=== PATIENT | female | born 2000 | race Caucasian/White ===

== ENCOUNTER 2025-07-06 12:02 | Emergency (ER) | payer OTHER, SELFPAY ==
--- OUTSIDE RECORDS SUMMARY | 2018-05-10 06:00 | XMS_ITS | Continuity of Care Document ---
Author Organization [facility] Address [address] [place] [address] Phone Care Team Providers Care Access Director Name Role Phone MD MARIA L, MONIK RIDDLE Unavailable Unavailab le Advance Directives Directive Yes / No Effective Date File Name No Information Encounters Encounter Description Practice Location Reason(s) For Visit Diagnoses Date Provider Providers Copied on Encounter [facility], [facility], [place], [address], tel:[phone] [facility] OFFICE No Information 8 MD MONIK LISA. [address] [place] [address], [place], [id number] , [place]. tel:[phone] Referring Provider: GABBY Suarez [address] [place] [address] [address], [place], [address]. tel:[phone] Family History Family Member Type Diagnosis Age At Onset Problem (finding) No family hist ory of Cardiomyopathy - hypertrophic Problem (finding) No family hist ory of Premature CAD Problem (finding) No family hist ory of Diabetes Mellitus Paternal Grandfather Problem (finding) Hypertension Paternal Grandmother Problem (finding) Hypertension Problem (finding) No family history of Ar rhythmia Problem (finding) No family hist ory of Cardiomyopathy - dilated Problem (finding) No family hist ory of Congenital Heart Disease Problem (finding) No family history of Hopson dden Payers Payer name Insurance type Covered libertarian ID Authoriza tion(s) [facility] POS [id number] Social History Type Description Quantity Date Captured Comments Alcohol Use Details Unknown Caffeine Use Details Unknown Tobacco Use Status No Information Smoking Status No Information Sex Female Vital Signs Date / Time: Height Weight BMI Pulse Rate Blood Pressure Temperature Respiratory Rate Body Surface Area Head Circumference BMI percentile Pulse Ox Inhaled Ox 10:31 AM 62.99 in 50.349 kg (111.00 lbs) 19.7 0 kg/m eter (2) 75 /min 16 /min 1.50 meter(2) 29 Chief Complaint And Reason For Visit No Information History Of Present Illness Encounter Date Complaint History Of Prese nt Illness No Information Instructions Date Instruction Additional Infor mation No Information Assessments Type Assessment Date No Information
--- OUTSIDE RECORDS SUMMARY | 2020-07-26 20:00 | XMS_ITS | Continuity of Care Document ---
Author Organization [facility] Address [address] [place] [address] Care Team Providers Care Surveyor Helper Rod Name Role Phone No Information Unavailable Unavailable Advance Directives Directive Yes / No Effective Date File Name No Information Encounters Encounter Description Practice Location Reason(s) For Visit Diagnoses Date Provider Providers Copied on Encounter [facility], [address] [place], [place], [phone], No Information No Information Family History Family Member Type Diagnosis Age At Onset Problem (finding) No family hist ory of Premature CAD Problem (finding) No family hist ory of Cardiomyopathy - hypertrophic Problem (finding) No family history of Hopson dden Problem (finding) No family history of Ar rhythmia Problem (finding) No family hist ory of Congenital Heart Disease Problem (finding) No family hist ory of Diabetes Mellitus Problem (finding) No family hist ory of Cardiomyopathy - dilated Paternal Grandfather Problem (finding) Hypertension Paternal Grandmother Problem (finding) Hypertension Payers Payer name Insurance type Covered constitution party ID Authoriza tion(s) No Information Social History Type Description Quantity Date Captured [...]
--- OUTSIDE RECORDS SUMMARY | 2025-05-08 17:15 | XMS_ITS | Encounter Summary ---
Author Organization [facility] [place] [address] Care Team Providers Care Construction Operations Manager Name Role Phone Unavailable Primary Care Provider Unavailabl e Reason for Visit * Reason Comments Insect Bite Tick bite Encounter Details Date Type Department Care Team (Late st Contact Info) Description 05/08/2025 5:15 PM EDT Telemedicine [facility] Virtual Health Video Visits [address] [place] [address] Janell Pedraza APRN [address] [place] [address] Tick bite of lower back, initial encounter (Primary Dx) Social History Tobacco Use Types Packs/Day Years Used Date Smoking Tobacco: Never Smokeless Tobacco: Never Tobacco Cessation:Counseling Given: Not Answered Comments Unknown Sex and Gender Information Value Date Recorded Sex Assigned at Not on file Legal Sex Female 4:45 PM EDT Gender Identity Not on file Sexual Orientation Not on file documented as of this encounter Last Filed Vital Signs Vital Sign Reading Time Taken Comments Blood Pressure - - Pulse - - Temperature - - Respiratory Rate - - Oxygen Saturation - - Inhaled Oxygen Concentration - - Weight 54.4 kg (120 lb) 05/08/2025 5:32 PM EDT Height 160 cm (5' 3 ) 05/08/2025 5:32 PM EDT Body Mass Index 21.26 05/08/2025 5:32 PM EDT documented in this encounter Patient Instructions * Attachments The following attachments cannot be sent through Care Everywhere. * Insect bites and stings (Kyrgyz) * Lyme disease (Kyrgyz) documented in this encounter Ordered Prescriptions Prescription Sig Dispense Quantity Refills Last Filled Start Date End Date doxycycline hyclate (VIBRA-TABS) 100 mg Oral TabletIndications: Tick bite of lower back, initial encounter Take 2 Tablets by mouth once for 1 dose. 2 Tablet 05/09/2025 5 doxycycline hyclate (VIBRA-TABS) 100 mg Oral TabletIndications: Tick bite of lower back, initial encounter Take 2 Tablets by mouth once for 1 dose. 2 Tablet 05/08/2025 5 documented in this encounter Progress Notes * Janell Pedraza, DEPARTMENT DIRECTOR - 05/08/2025 5:15 PM EDT Images from the original note were not included. Eva Zimmerman is a 24 y.o. female Chief Complaint: Chief Complaint Patient presents with Insect Bite Tick bite This virtual health visit is being conducted using a Video Visit (live, interactive video and audio), in accordance with [facility] telehealth laws and policies, and in a private space with a secure platform. Patient has reviewed the terms and conditions of service as part of the registration for today's visit.. HISTORY OF PRESENT ILLNESS - SUBJECTIVE Patient presents for video visit with c/o a tick bite. Patient states that she removed the tick yesterday. Patient was outside on Monday. She states that she did shower on Monday night and did not see/feel the take at that time. She thinks that it was possibly in her cloths yesterday. She states that the tick released easily with a small amount of pressure. The tick was flat and not engorged. She denies any fever or chills. She denies any joint pain or fatigue. She denies any rash. Patient is stable and in no apparent distress during video visit. LMP: (female only) 1 month ago, denies concerns for . MEDICAL HISTORY There is no immunization history on file for this patient. Health Maintenance Due Topic Date Due Annual Wellness Exam Never done HPV (1 - 3-dose series) Never done DTaP/TDaP/Td (1 - Tdap) Never done Hepatitis B Vaccine (1 of 3 - 19+ 3-dose series) Never done COVID-19 Vaccine ( season) Never done Current Outpatient Medications on File Prior to Visit Medication Sig Dispense Refill spironolactone (ALDACTONE) 25 mg Oral Tablet Take by mouth 2 times daily. No current facility-administered medications on file prior to visit. REVIEW OF SYSTEMS Review of Systems Constitutional: Negative for chills, fever, malaise/fatigue and weight loss. Respiratory: Negative for cough and shortness of breath. Cardiovascular: Negative for chest pain. Gastrointestinal: Negative for abdominal pain, constipation, diarrhea, nausea and vomiting. Skin: Negative for itching and rash. Tick bite Neurological: Negative for dizziness, weakness and headaches. PHYSICAL EXAM - OBJECTIVE Physical Exam Constitutional: General: She is not in acute distress. Appearance: She is not ill-appearing. Comments: Pt is stable and in no distress during video visit Pulmonary: Effort: Pulmonary effort is normal. No respiratory distress. Skin: Coloration: Skin is not cyanotic or pale. Comments: Small bite located to the right hip area. There is no rash noticeable. Over video visit it appears to be approximately 3 mm. The patient states that it is smaller than a pencil eraser. There is no surrounding erythema or rash. Exam is limited due to video visit. Neurological: Mental Status: She is alert and oriented to person, place, and time. Psychiatric: Attention and Perception: Attention normal. Mood and Affect: Mood and affect normal. Speech: Speech normal. Behavior: Behavior normal. Thought Content: Thought content normal. LABS ASSESSMENT AND PLAN Diagnoses and all orders for this visit: Tick bite of lower back, initial encounter - doxycycline hyclate (VIBRA-TABS) 100 mg Oral Tablet; Take 2 Tablets by mouth once for 1 dose. Dispense: 2 Tablet; Refill: 0 Discussion: Patient instructed to clean the area twice a day with warm soap and water. She is to watch the area closely for rash or erythema. She is to report this immediately by going to the urgent care or calling back for a VV OD. She is to also follow-up for any body aches, fatigue or fever overthe next few days to months. Patient only visiting the area for the summer and does not currently yeboah ve a PCP. I will go ahead and empirically treat her with the PEP protocol of doxycycline 200 mg once. The patient has requested evaluation by telemedicine. Patient verbally expressed understanding of the risks/limitations associated with the use of telemedicine, including equipment failure, poor audio/image resolution, information writer issues, the fact that patient will not be physically examined and may need to come to clinic to complete the assessment. Patient has reviewed the terms and conditions of service as part of the registration for today's visit. A video visit does not replace a [id number] exam and further services may be necessary. We are conducting her video visit in a private space and this video visit is being conducted in accordance with state telehealth/video visit regulations. Discussed self management and treatment plan. Instructed to notify PCP/seek emergency care if new symptoms occur or if current symptoms worsen or don't improve and/or with any questions or concerns. Pt voiced understanding. Instructed to notify PCP/seek emergency care if new symptoms occur or if current symptoms worsen ordon't improve and/or with any questions or concerns. This chart was completed using Bokee voice recognition technology and may contain unintended errors. Explained to patient the limitations of a video visit and that certain illnesses can be missed without a physical exam and that by treating him he/she agrees to follow up in person if his/her symptoms do not resolve in a reasonable time or to be seen immediately if he/she feels their symptoms are getting worse. Educated patient and/or family members regarding the care plan and instructions listed on the AfterVisit Summary [AVS] for today's visit. The patient and/or family members verbalized full understanding of the care plan and instructions given on the AVS for today's visit. A new medicine was prescribed during this office visit. I did discuss with the patient the reason for prescribing this new medication. I also did inform the patient of possible likely side effects, but also encouraged the patient to read the medication insert that will accompany their prescription and encouraged them to discuss any questions about the insert with their pharmacist. The patient wasinstructed to call if having side effects or possible allergic reaction after taking. I also discussed with the risk of stopping the medication or deviating from prescribing instructions. Dosing instructions are present on the AVS and the patient is aware. I inquired both patient and/or family of any questions and answered accordingly. Janell Pedraza APRN Return if symptoms worsen or fail to improve. documented in this encounter Miscellaneous Notes * Patient Instructions - Janell Pedraza APRN - 05/08/2025 5:15 PM EDT Please follow-up at the local urgent care or a video visit if you develop any body aches, fatigue, rash that looks like a bull's-eye or fever over the next days to month. Please notify PCP/seek emergency care if new symptoms occur or if current symptoms worsen or don't improve and/or with any questions or concerns. Closely monitor your symptoms and seek emergency careif shortness of breath or difficulty breathing, difficulty waking from sleep, chest tightness, confusion, bluish discoloration of lips or face, you have no urine for 6-8 hours, your urine is very dark, you have a racing heart rate, dizziness, you cannot drink fluids without vomiting/diarrhea occur or if symptoms worsen or don't improve. * Addendum Note - Shaye Main RMA - 05/08/2025 5:15 PM EDTAddended by: SHAYE MAIN on: 05/09/2025 10:52 AM Modules accepted: Orders documented in this encounter Plan of Treatment Not on file documented as of this encounter Visit Diagnoses Diagnosis Tick bite of lower back, initial encounter- Primary documented in this encounter Discontinued Medications Medication Sig Discontinue Reason Start Date End Da te doxycycline hyclate (VIBRA-TABS) 100 mg Oral TabletIndications:Tick bite of lower back, initial encounter Take 2 Tablets by mouth once for 1 dose. Reorder 05/08/2025 05/09/2025 documented as of this encounter Historical Medications * This list may reflect changes made after this encounter. spironolactone (ALDACTONE) 25 mg Oral Tablet Take by mouth 2 times daily. added in this encounter
[2025-07-06 12:07] VITALS: BP 123/66; PULSE 83; RESP 16; TEMP 36.6; O2SAT 100; BMI 21.2
--- NOTE | 2025-07-06 12:33 | ED_ITS ---
Discharge Plan Disposition Patient Disposition: Home, Self-Care Condition: Good Prescriptions Prescriptions: New azithromycin [Zithromax Z-Anselmo] 250 mg tablet See Rx Instructions .ROUTE .COMPLEX Qty: 6 0RF Rx Instructions: For 250 mg dose pack: take 500 mg today (day 1), then 250 mg for 4 days (days 2-5) No Action spironolactone 100 mg Tablet 100 mg PO DAILY Referrals Follow up/Referrals: pcp [Other] - See instructions Provider,Referral, MD [Primary Care Provider, Medical] - See instructions Activity Restrictions/Add. Instructions Additional Instructions/Restrictions: You were seen for a cat scratch. Please take your antibiotics as prescribed. Return to the ER if you have any signs of skin infection or fever. Clinical Impressions Clinical Impression: Cat scratch Instructions Patient Instructions: DI for Cat Scratch Disease/Fever Print Language Print Language: Turkish Discharge ED Provider: Ryan Bonilla General Adult HPI <LEOBARDO Desir - Last Filed: 07/06/25 12:42> General Chief complaint: Animal Bite Stated complaint: AO-07/05/25,scratches to hands and arms Time Seen by Provider: 07/06/25 12:07 Mode of Arrival: Ambulatory Source of Information: Patient Description of Symptoms (Recalled from ER Triage Doc. by RN): patient presents to the emergency department with complaints of cat scratches on the right arm and left hand. the patient stated this happened yesterday adn she wishes to be evaluated becasue one of the cats did not make it thorugh the night. History of Present Illness HPI narrative: Patient presents with reports of cat scratch. She reports that she found some stray kittens approximately 6 weeks old yesterday on the side of the road. She reports that she was handling the kittens and had several scratches to her arms and legs. One of the kittens in the night and she became concerned. One area is a small puncture, however unclear if she had any bites. Denies any fevers or vomiting. complaint: cat scratch Onset (ago): day(s) (1) Location: left, right, upper extremity and lower extremity Severity: mild Relieving factors: none Exacerbating factors: none Associated symptoms: denies other symptoms Treatments prior to arrival: none Related Data Home Medications ?Medication ?Instructions ?Recorded ?Confirmed spironolactone 100 mg tablet 100 mg PO DAILY 07/06/25 07/06/25 Previous Rx's ?Medication ?Instructions ?Recorded azithromycin 250 mg tablet See Rx Instructions PO .COM PLEX #6 07/06/25 (Zithromax Z-Anselmo) tabs Allergies Allergy/AdvReac Type Severity Reaction Status Date / Time No Known Allergies Allergy Verified 07/06/25 12:32 PFSH <LEOBARDO Desir - Last Filed: 07/06/25 12:42> [facility] Disclaimer: The information contained in this section may have been updated after the patient was seen, as this information can be updated by other users. Social History (Updated 07/06/25 @ 12:42 by LEOBARDO Desir) Smoking Status: Never smoker alcohol intake: never current occupational status: other Travel in the last 8 weeks?: None Have you lived/traveled outside [place] in past 30 days?: No Contact w/someone who lives/traveled outside US past 30 days?: No Exposure to someone with infectious disease in past 14 days?: No Do you have a fever (greater than 100.4 F or 38 C)?: No Have you tested positive for COVID-19?: No Exposed to someone with COVID-19 in past 14 days?: No Do you have a sore throat?: No Do you have a cough?: No Do you have any weakness?: No Do you have any diarrhea?: No Are you experiencing any unusual bleeding?: No Do you have any muscle aches/pain?: No Do you have any abdominal pain?: No Are you experiencing loss of taste or smell?: No <LEOBARDO Desir - Last Filed: 07/06/25 12:42> ROS Obtained: Yes Systems reviewed as appropriate & no additional complaints exc ept as documented Physical Exam <LEOBARDO Desir - Last Filed: 07/06/25 12:42> General General appearance: alert and in no apparent distress Head Head exam: atraumatic and normocephalic Eye Eye exam: Present normal appearance and EOMI Chest Chest inspection: Present symmetric chest wall rise Respiratory Respiratory exam: Present normal lung sounds bilaterally; Absent wheezes or stridor Cardiovascular Cardiovascular exam: Present regular rate and normal rhythm; Absent systolic murmur Extremities Exam Extremities exam: Present full ROM Neurological Exam Neurological exam: Present alert and oriented X3 Psychiatric Psychiatric exam: Present normal affect and normal mood Skin Skin exam: Present other (superficial, linear abrasion to right wrist anteriorly, left anterior thigh and left anterior forearm. Small, superficial puncture to 4th digit middle phalanx, palmar surface) Medical Decision Making <LEOBARDO Desir - Last Filed: 07/06/25 12:42> Medical Records Screening: Per USPSTF and CDC recommendations, given the prevalence of disease in our region, it is our hospital?s policy to screen for HIV and viral Hepatitis for all patients aged 18 and over and those with ongoing risk factors. Parviz Inquiry Pt receiving controlled substance: No Vital Signs: 07/06/25 12:07 Temperature 97.9 F Temperature Source Oral Pulse Rate [Right Radial] 83 Respiratory Rate 16 Blood Pressure [Right Arm] 123/66 Blood Pressure Mean [Right Arm] 85 Blood Pressure Source [Right Arm] Automatic Cuff Blood Pressure Position [Right Arm] Sitting 02 Sat by Pulse Oximetry 100 Oxygen Delivery Method Room Air Medical Decision Narrative: In summary patient is a 25-year-old female who presents the emergency department for evaluation of cat scratch. Patient is hemodynamically stable upon arrival, afebrile. Superficial abrasion and small puncture to skin on exam. Differential diagnosis includes cat scratch, cat bite. Completed animal bite fo rm for animal control to contact the patient about the cat. Discussed that rabies in cats has very low likelihood, at this time would not recommend give that the cats can be observed/ tested. It is also not confirmed if she had a bite. Given this patient is appropriate for discharge home at this time with prescription for Zithromax.. <Ryan Bonilla MD - Last Filed: 07/06/25 12:43> Vital Signs: 07/06/25 12:07 Temperature 97.9 F Temperature Source Oral Pulse Rate [Right Radial] 83 Respiratory Rate 16 Blood Pressure [Right Arm] 123/66 Blood Pressure Mean [Right Arm] 85 Blood Pressure Source [Right Arm] Automatic Cuff Blood Pressure Position [Right Arm] Sitting 02 Sat by Pulse Oximetry 100 Oxygen Delivery Method Room Air Medical Decision Narrative: In summary patient is a 25-year-old female who presents the emergency department for evaluation of cat scratch. Patient is hemodynamically stable upon arrival, afebrile. Superficial abrasion and small puncture to skin on exam. Differential diagnosis includes cat scratch, cat bite. Completed animal bite form for animal control to contact the patient about the cat. Discussed that rabies in cats has very low likelihood, at this time would not recommend give that the cats can be observed/ tested. It is also not confirmed if she had a bite. Given this patient is appropriate for discharge home at this time with prescription for Zithromax.. I was consulted by the EBENEZER, and we discussed the complexity of the problems being addressed. I approve the treatment and management plan for this patient's care in the emergency department, thus performing a substantive portion of the medical decision making. Ryan Bonilla MD Critical Care <LEOBARDO Desir - Last Filed: 07/06/25 12:42> Critical Care Time Critical Care Time: No
--- OUTSIDE RECORDS SUMMARY | 2025-07-06 12:40 | XMS_ITS | Encounter Summary ---
Author Organization [facility] [place] [place] [address] Care Team Providers Care Cook House Laborer Name Role Phone Unavailable Primary Care Provider Unavailabl e Encounter Details Date Type Department Care Team (Latest Contact Info) Description 05/08/2025 Travel Social History Tobacco Use Types Packs/Day Years Used Date Smoking Tobacco: Never Smokeless Tobacco: Never Comments Unknown Sex and Gender Information Value Date Recorded Sex Assigned at Not on file Legal Sex Female 4:45 PM EDT Gender Identity Not on file Sexual Orientation Not on file documented as of this encounter Plan of Treatment Not on file documented as of this encounter Visit Diagnoses Not on filedocumented in this encounter
--- OUTSIDE RECORDS SUMMARY | 2025-07-06 12:40 | XMS_ITS | Clinical Summary ---
Author Organization [facility] Address [address] [place] [phone] Phone Care Team Providers Care Concert Or Lecture Hall Manager Name Role Phone Unavailable Primary Care Provider Unavailabl e Allergies No known active allergies Medications spironolactone (ALDACTONE) 25 mg Oral Tablet Take by mouth 2 times daily. Active Active Problems No known active problems Encounters Date Type Department Care Team Description 05/08/2025 5:15 PM EDT [facility] [address] [place] [phone] PedrazaJanell de la cruz APRN Tick bite of lower back, initial encounter (Primary Dx) 05/08/2025 Travel from Last 3 Months Social History Tobacco Use Types Packs/Day Years Used Date Smoking Tobacco: Never Smokeless Tobacco: Never Tobacco Cessation:Counseling Given: Not Answered Comments Unknown Sex and Gender Information Value Date Recorded Sex Assigned at Not on file Legal Sex Female 4:45 PM EDT Gender Identity Not on file Sexual Orientation Not on file Obstetrics History Last Filed Vital Signs Vital Sign Reading Time Taken Comments Blood Pressure - - Pulse - - Temperature - - Respiratory Rate - - Oxygen Saturation - - Inhaled Oxygen Concentration - - Weight 54.4 kg (120 lb) 05/08/2025 5:32 PM EDT Height 160 cm (5' 3 ) 05/08/2025 5:32 PM EDT Body Mass Index 21.26 05/08/2025 5:32 PM EDT Plan of Treatment Health Maintenance Due Date Last Done Comments Annual Wellness Exam 2003 HPV (1 - 3-dose series) 2015 DTaP/TDaP/Td (1 - Tdap) 2019 Hepatitis B Vaccine (1 of 3 - 19+ 3-dose series) 2019 Cervical Cancer Screening 2021 Pap Smear 2021 COVID-19 Vaccine (2023-2 5 season) 2024 Influenza Vaccine (#1) 2025 Meningococcal B Vaccine Aged Out No l onger eligible based on patient's age to complete this topic Pneumococcal Vaccine 0-49 Aged Out No longer eligible based on patient's age to complete this topic
--- NOTE | 2025-07-06 12:42 | PC.NURSE ---
animal bite form filled out by patient and faxed to [facility].
[2025-07-06 13:23] VITALS: BP 123/66; PULSE 85; RESP 18; TEMP 36.6; O2SAT 98
== END 2025-07-06 13:23 | disposition home or self-care (01) ==
PROVIDERS: Emergency Provider Student in an Organized Health Care Education/Training Program
DX: S60.811A Abrasion of right wrist, initial encounter (principal); S70.312A Abrasion, left thigh, initial encounter; S50.812A Abrasion of left forearm, initial encounter; W55.03XA Scratched by cat, initial encounter
CPT/HCPCS: 99283